=== PATIENT | male | born 1980 | race African-American/Black ===

== ENCOUNTER 2019-02-09 18:22 | Emergency (ER) | payer OTHER ==
[~2019-02-09] VITALS: Ht 175.3 cm; Wt 73.5 kg
[2019-02-09 22:06] VITALS: BP 93/52
== END 2019-02-09 22:09 | disposition home or self-care (01) ==
LOC: ER 18:22
DX: F10.129 Alcohol abuse with intoxication, unspecified (principal); F17.210 Nicotine dependence, cigarettes, uncomplicated; E11.9 Type 2 diabetes mellitus without complications